=== PATIENT | female | born 1960 | race Caucasian/White ===

== ENCOUNTER → 2025-01-09 | Outpatient (CLI) | payer OTHER ==
[2025-01-09 17:59] LABS: Very Low Density Lipoprot Chol 10 mg/dL (6-32)
[2025-01-09 18:07] LABS: CHOL/HDL RATIO 2.5; Cholesterol 191 mg/dL (50-200); HDL Cholesterol 76 mg/dL (>39); LDL/HDL RATIO 1.4; Low Density Lipoprotein Chol 105 mg/dL (0-110); Triglycerides 50 mg/dL (30-160)
[2025-01-10 17:11] LABS: HIV 1,2 COMBO ANTIGEN/ANTIBODY Negative (Negative)
[2025-01-10 18:25] LABS: HEPATITIS C AB CIA INTERP Negative (Negative); HEPATITIS C ANTIBODY CIA INDEX 0.12 IV
== END ==
LOC: LAB 16:15 → LAB SHORT 16:15
PROVIDERS: Family Medicine
DX: E03.9 Hypothyroidism, unspecified (principal); E78.5 Hyperlipidemia, unspecified; Z11.4 Encounter for screening for human immunodeficiency virus [HIV]; Z11.59 Encounter for screening for other viral diseases
CPT/HCPCS: 80061; 84443; 86803; 87389